=== PATIENT | female | born 1955 | race Caucasian/White ===

== ENCOUNTER 2016-08-17 19:20 | Emergency (ER) | payer BC ==
[~2016-08-17] VITALS: Ht 157.5 cm; Wt 73.0 kg
[2016-08-17] MEDS ORDERED: KETOROLAC TROMETHAMINE 60 MG/2 ML (IM) VIAL IM ONE (19:30)
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
[2016-08-17] MEDS ORDERED: TETANUS/DIPHTHERIA TOXOID ADULT 0.5 ML VIAL IM ONE (19:45)
[2016-08-17 19:48] VITALS: BP 134/64; PULSE 72; RESP 16; TEMP 98.3; O2SAT 97
[2016-08-17 19:52] VITALS: BP 134/64; PULSE 72; RESP 18; TEMP 98.3; O2SAT 97
[2016-08-17] MEDS ORDERED: IBUP800T23 PO (20:18)
[2016-08-17] MEDS ORDERED: HYDR-3533 PO (20:18)
--- NOTE | 2016-08-17 20:23 | RADRPT ---
EXAM DATE/TIME: 08/17/2016 19:52 [facility] COMPARISON: No previous studies available for comparison. INDICATIONS : Right foot and ankle pain post fall. MEDICAL HISTORY : Osteopenia SURGICAL HISTORY : ORIF Left ankle ENCOUNTER: Initial ACUITY: 1 day PAIN SCORE: 10/10 LOCATION: Right Ankle FINDINGS: No definite fractures, or dislocations are identified. No definite lytic or sclerotic lesion is seen . Soft tissue swelling is identified. CONCLUSION: Soft tissue swelling and no definite fracture for regina. Pauline Falcon MD on August 17, 2016 at 20:21 Board Certified Radiologist. This report was verified electronically.
--- NOTE | 2016-08-17 20:24 | RADRPT ---
EXAM DATE/TIME: 08/17/2016 19:54 This report includes an Addendum and supersedes previous reports for this exam. [facility] COMPARISON: No previous studies available for comparison. INDICATIONS : Right foot and ankle pain post fall. MEDICAL HISTORY : Osteopenia SURGICAL HISTORY : ORIF Left ankle ENCOUNTER: Initial ACUITY: 1 day PAIN SCORE: 10/10 LOCATION: Right foot FINDINGS: No definite fractures, or dislocations are identified. No definite lytic or sclerotic lesion is seen . The joint spaces are well maintained. CONCLUSION: Unremarkable study. Pauline Falcon MD on August 17, 2016 at 20:22 Board Certified Radiologist. This report was verified electronically. ADDENDUM: There is lucency along the corner/base of the distal phalanx of the great toe laterally lik luz elena related to nondisplaced fracture. Demarco Cummings MD on August 18, 2016 at 13:04 Board Certified Radiologist. This report was verified electronically.
--- NOTE | 2016-08-17 20:24 | RADRPT ---
EXAM DATE/TIME: 08/17/2016 19:57 [facility] COMPARISON: No previous studies available for comparison. INDICATIONS : Right flank pain post fall. MEDICAL HISTORY : Osteopenia SURGICAL HISTORY : ORIF Left ankle ENCOUNTER: Initial ACUITY: 1 day PAIN SCORE: 3/10 LOCATION: Right flank FINDINGS: No definite fractures, or dislocations are identified. No definite lytic or sclerotic lesion is seen . The joint space is well maintained. CONCLUSION: Unremarkable study. Pauline Falcon MD on August 17, 2016 at 20:22 Board Certified Radiologist. This report was verified electronically.
[2016-08-17] MEDS ORDERED: ACETAMINOPHEN/HYDROcodone 325 MG/5 MG TAB PO ONE (20:30)
[2016-08-17 20:53] VITALS: RESP 16
== END 2016-08-17 21:12 | disposition home or self-care (01) ==
LOC: NEPK 19:20
DX: S92.424A Nondisplaced fracture of distal phalanx of right great toe, initial encounter for closed fracture (principal); S82.891A Other fracture of right lower leg, initial encounter for closed fracture; V18.0XXA Pedal cycle driver injured in noncollision transport accident in nontraffic accident, initial encounter; Y92.480 Sidewalk as the place of occurrence of the external cause; Z23 Encounter for immunization; Y93.55 Activity, bike riding
CPT/HCPCS: 73502; 73610; 73630; 90471; 90714; 96372; 99283; E0113; J1885; L2114